=== PATIENT | male | born 1990 | race Two or more races ===

== ENCOUNTER → 2019-03-30 | Outpatient (CLI) | payer OTHER ==
--- NOTE | 2019-03-30 16:47 | KCIC ---
Chest radiograph 03/30/2019 12:00 AM INDICATION: Tuberculosis COMPARISON: None available TECHNIQUE: Frontal and lateral views of the chest are provided. FINDINGS: The cardiomediastinal silhouette is within normal limits. There are no pleural effusions. There is no pulmonary vascular congestion. There is no pneumothorax. The lungs are clear. No significant osseous abnormality is identified. IMPRESSION: No acute cardiopulmonary process. Electronically signed by: Columba Viera MD (03/30/2019 4:44 PM) [id number]
== END | disposition home or self-care (01) ==
LOC: KCIC 10:57
PROVIDERS: ATTEND Family Medicine
DX: Z11.1 Encounter for screening for respiratory tuberculosis (principal)
CPT/HCPCS: 71046